=== PATIENT | female | born 1995 | race Caucasian/White ===

== ENCOUNTER 2018-04-26 17:46 | Outpatient (CLI) | payer MEDICAID ==
[~2018-04-26] VITALS: Ht 160 cm; Wt 91.8 kg
[~2018-04-26 17:46] MED LIST: PNV11TAB PO
[2018-04-26 17:55] VITALS: BP 117/76; PULSE 71; RESP 18; Ht 160 cm; Wt 91.8 kg
[2018-04-26] MEDS ORDERED: TERBUTALINE 1 MG/ML INJ SC ONE (21:00)
--- NOTE | 2018-04-26 22:18 | PN ---
Triage Information Date/Time April 26, 2018 Reason for visit: Uterine contractions Weeks of Gestation 32w 3d /Para 3/2 Diabetes: none Hypertention: none Additional information No VB or leaking.PMHx: none. PSHx: none. NKDA Objective Vital Signs Date Temp Pulse Resp B/P (MAP) Pulse Ox O2 O2 Flow FiO2 Time Delivery Rate 04/26/18 98.4 71 18 117/76 Room Air 17:55 (90) Heart Rate: 150's Heart Rate Comments Accels to 180 BPM. No decels. Contractions: < 5 Minutes Apart Results/Medications Results 24 hrs Laboratory Tests Test 04/26/18 17:00 Urine Color YELLOW Urine Clarity CLEAR Urine pH 7.0 Urine Specific [place] 1.013 Urine Ketones NEGATIVE Urine Nitrite NEGATIVE Urine Bilirubin NEGATIVE Urine Urobilinogen NEGATIVE Urine Leukocyte Esterase 2+ H Urine Microscopic RBC 1 Urine Microscopic WBC 7 H Urine Squamous Epithelial Cells FEW Urine Bacteria FEW A Urine Hemoglobin NEGATIVE Urine Glucose NEGATIVE Urine Total Protein NEGATIVE Imaging Results BPP 8/8 with an ERLIN of 8.9 cm. Cervical length 4.0 cm and closed. Disposition: Discharge Assessment/Plan A: IUP at 32w 3d. False labor. P: Pt was given p.o. hydration and then one dose of terbutaline and the contractions spaced out to one q 30 minutes which the pt does not feel at all. D/C home. PTL precautions given. Pelvic rest and pt to take it easy and hydrate well tomorrow. KEILA BLAS MD Apr 26, 2018 22:18
--- NOTE | 2018-04-26 22:39 | TRIAGE ---
OB Triage Datetime Report Generated by CPN: 04/26/2018 22:39 Datetime: 04/26/2018 22:10 Stage of : OB Triage Labor Evaluation Frequency: x3 Monitor Mode: External Quality: Mild Pattern: Normal: <= 5 Contractions in 10 Minutes Resting Tone [place]: Relaxed Heart Rate FHR Baseline Rate: 140 Monitor Mode: External US FHR Baseline Changes: No Baseline Change Variability: Moderate 6-25 bpm Accelerations: 15X15 Decelerations: None Category: Category I Pain Assessment Pain Scale: 0 Pain Presence: None/Denies Pain Type: N/A Datetime: 04/26/2018 21:33 Vaginal Exam Membrane Status: Intact Datetime: 04/26/2018 21:10 Stage of : OB Triage Monitor Mode: External Resting Tone [place]: Relaxed Heart Rate FHR Baseline Rate: 150 Monitor Mode: External US Pain Assessment Pain Scale: 0 Pain Presence: None/Denies Pain Type: N/A Datetime: 04/26/2018 20:45 Stage of : OB Triage Heart Rate FHR Baseline Rate: 150 Datetime: 04/26/2018 20:32 Stage of : OB Triage Monitor Mode: External Quality: Mild Pattern: Normal: <= 5 Contractions in 10 Minutes Resting Tone [place]: Relaxed Heart Rate FHR Baseline Rate: 145 Monitor Mode: External US FHR Baseline Changes: No Baseline Change Variability: Moderate 6-25 bpm Accelerations: 15X15 Decelerations: None Category: Category I Pain Assessment Pain Scale: 5 Pain Presence: Intermittent Pain Type: Cramping Pain Location: Abdomen Datetime: 04/26/2018 20:00 Stage of : OB Triage Datetime: 04/26/2018 19:39 Stage of : OB Triage Monitor Mode: External Quality: Mild Pattern: Normal: <= 5 Contractions in 10 Minutes Resting Tone [place]: Relaxed Heart Rate FHR Baseline Rate: 150 Monitor Mode: External US Pain Assessment Pain Scale: 5 Pain Presence: Intermittent Pain Type: Cramping Pain Location: Abdomen Datetime: 04/26/2018 19:20 Labor Evaluation Frequency: 2-5 Monitor Mode: External Duration (sec)2399: 30-40 Quality: Mild Pattern: Normal: <= 5 Contractions in 10 Minutes Resting Tone [place]: Relaxed Heart Rate FHR Baseline Rate: 145 Monitor Mode: External US FHR Baseline Changes: No Baseline Change Variability: Moderate 6-25 bpm Accelerations: 15X15 Decelerations: None Category: Category I Datetime: 04/26/2018 19:09 Labor Evaluation Frequency: X4 Monitor Mode: External Duration (sec)2399: 40-80 Quality: Mild Pattern: Normal: <= 5 Contractions in 10 Minutes Resting Tone [place]: Relaxed Heart Rate FHR Baseline Rate: 140 Monitor Mode: External US Variability: Moderate 6-25 bpm Accelerations: 15X15 Decelerations: None Category: Category I Datetime: 04/26/2018 18:09 Comments: U/S TECH AT BEDSIDE Datetime: 04/26/2018 18:08 Labor Evaluation Frequency: X1 Monitor Mode: External Duration (sec)2399: 50 Quality: Mild Pattern: Normal: <= 5 Contractions in 10 Minutes Resting Tone [place]: Relaxed Heart Rate FHR Baseline Rate: 150 Monitor Mode: External US Variability: Moderate 6-25 bpm Accelerations: 15X15 Decelerations: None Category: Category I Datetime: 04/26/2018 17:53 Assessment Type: Triage Maternal Assessment Level of Consciousness: Fully Conscious DTR's/Clonus: DTRs 2+; No Clonus Headache: Denies Blurred Vision: No Respiratory Effort: Unlabored; Regular Rhythm; Equal Expansion Breath Sounds, Left: Clear and Equal Breath Sounds, Right: Clear and Equal Nausea/Vomiting: Denies RUQ Epigastric Pain: Denies Lower Extremities Edema: None Degree: None Upper Extremities Edema: None Degree: None Facial Edema: None Fall Risk Assessment History of Falling: (0) No Secondary Diagnosis: (0) No Ambulatory Aid: (0) Bedrest/Nurse Assist IV Therapy: (0) No Gait: (0) Normal/Bedrest/Immobile Mental Status: (0) Oriented to Own Ability Fall Score: 0 Fall Risk Score Definition: No Risk: No action required Datetime: 04/26/2018 17:52 Time of Arrival: 04/26/2018 17:35 EGA: 32.3 Arrived By: Ambulatory Arrived From: Home Chief Complaint: LOWER ABD/VAGINAL PRESSURE Movement: Present Contractions: Denies/Absent Rupture of Membranes: Denies Vaginal Bleeding: None Vaginal Discharge: Denies Recent Sexual Intercouse: Denies Abdominal Trauma: Not Applicable Patient Complaints: Back Pain Time Provider Notified: 04/26/2018 18:06 Provider Notified: CAROL ANN Initial Plan: U/A, NST Datetime: 04/26/2018 17:51 Pain Assessment Pain Scale: 4 Pain Presence: Constant Pain Type: Pressure Pain Location: Abdomen; Back; Perineum Pain Goal: 4 Pain Relief Measures: Comfort Measures Pain Assessment Comments: C/O LOWER ABD/BACK AND VAGINAL PRESSURE SINCE YESTERDAY. STATES PAIN IS T OLERABLE. DENIES ANY VAGINAL LEAKING OR BLEEDING Datetime: 03/28/2018 17:00 Monitor Mode: MD STATED NOT NECESSARY,OFF AWAITING CVL ,WILL DISCHARGE PT Datetime: 03/28/2018 16:59 Labor Evaluation Frequency: 0 Monitor Mode: External Pattern: Normal: <= 5 Contractions in 10 Minutes Resting Tone [place]: Relaxed Heart Rate FHR Baseline Rate: 150 Monitor Mode: External US FHR Baseline Changes: No Baseline Change Variability: Moderate 6-25 bpm Accelerations: 10X10 Decelerations: None Category: Category I Datetime: 03/28/2018 16:30 Labor Evaluation Frequency: 0 Monitor Mode: External Resting Tone [place]: Relaxed Heart Rate FHR Baseline Rate: 150 Monitor Mode: External US FHR Baseline Changes: No Baseline Change Variability: Moderate 6-25 bpm Accelerations: 15X15 Decelerations: None Category: Category I Datetime: 03/28/2018 15:59 Stage of : OB Triage Maternal Assessment Level of Consciousness: Fully Conscious DTR's/Clonus: DTRs 2+; No Clonus Headache: Denies Blurred Vision: No Respiratory Effort: Unlabored; Regular Rhythm; Equal Expansion Breath Sounds, Left: Clear and Equal Breath Sounds, Right: Clear and Equal Nausea/Vomiting: Denies RUQ Epigastric Pain: Denies Lower Extremities Edema: None Degree: None Upper Extremities Edema: None Degree: None Facial Edema: None Temperature Route: Oral Fall Risk Assessment History of Falling: (0) No Secondary Diagnosis: (0) No Ambulatory Aid: (0) Bedrest/Nurse Assist IV Therapy: (0) No Gait: (0) Normal/Bedrest/Immobile Mental Status: (0) Oriented to Own Ability Fall Score: 0 Fall Risk Score Definition: No Risk: No action required Labor Evaluation Frequency: 0 Monitor Mode: External Heart Rate FHR Baseline Rate: 140 Monitor Mode: External US FHR Baseline Changes: No Baseline Change Variability: Moderate 6-25 bpm Accelerations: 10X10 Decelerations: None Category: Category I Datetime: 03/28/2018 15:55 Time of Arrival: 03/28/2018 14:30 EGA: 28.2 Arrived By: Ambulatory Chief Complaint: LOWER BACKPAINS AND LOWER ABDOMINAL PAIN,BURNING SENSTION WHEN VOIDING Time Provider Notified: 03/28/2018 16:01 (Annotations: Data stored by N on behalf of user) Provider Notified: CHRISTINE Initial Plan: ROSENDOV/S
== END 2018-04-26 22:23 | disposition home or self-care (01) ==
LOC: OBT 17:46 → L-D 17:46 → OBT 22:23
PROVIDERS: ATTEND Obstetrics & Gynecology
DX: O62.9 Abnormality of forces of labor, unspecified (principal); Z3A.32 32 weeks gestation of pregnancy
CPT/HCPCS: 76817; 76818; 81001; 87086; J3105; Z7500; G0463

== ENCOUNTER 2018-05-16 12:25 | Outpatient (CLI) | payer MEDICAID ==
[~2018-05-16] VITALS: Ht 165.1 cm; Wt 94.0 kg
[2018-05-16 12:59] VITALS: Ht 165.1 cm; Wt 94.0 kg
[2018-05-16 13:00] VITALS: BP 103/70
[2018-05-16] MEDS ORDERED: AL HYDROX/MG HYDROX/SIMETH 30 ML CUP PO ONE (13:30)
--- NOTE | 2018-05-16 16:34 | PN ---
Triage Information Date/Time 05/16/18 Reason for visit: Abd/pelvic pain Weeks of Gestation [id number] /Para Diabetes: none Hypertention: none Objective Vital Signs Date Temp Pulse Resp B/P (MAP) Pulse Ox O2 O2 Flow FiO2 Time Delivery Rate 05/16/18 98.3 103/70 13:00 (81) Heart Rate: 140's Contractions: None Results/Medications Results 24 hrs Laboratory Tests Test 05/16/18 13:38 Urine Color YELLOW Urine Clarity CLEAR Urine pH 7.0 Urine Specific [place] 1.005 Urine Ketones NEGATIVE Urine Nitrite NEGATIVE Urine Bilirubin NEGATIVE Urine Urobilinogen NEGATIVE Urine Leukocyte Esterase NEGATIVE Urine Hemoglobin NEGATIVE Urine Glucose NEGATIVE Urine Total Protein NEGATIVE Medications maalox Imaging Results BPP 8/8 ERLIN 8.7 no chlelithiasis fatty liver Disposition: Discharge Assessment/Plan A [id number] RUQ pain alleviated borderline oligohydramnios P discharge home f/u 3days for f/u for ERLIN RTH prn BEBETO MAHARAJ MD May 16, 2018 16:34
--- NOTE | 2018-05-16 16:35 | TRIAGE ---
OB Triage Datetime Report Generated by CPN: 05/16/2018 16:35 Datetime: 05/16/2018 14:57 Labor Evaluation Frequency: 0 Monitor Mode: External Pattern: Normal: <= 5 Contractions in 10 Minutes Resting Tone [place]: Relaxed Heart Rate FHR Baseline Rate: 145 Monitor Mode: External US Variability: Moderate 6-25 bpm Accelerations: 15X15 Decelerations: None Category: Category I Datetime: 05/16/2018 14:51 Comments: BACK PN MONITOR Datetime: 05/16/2018 13:57 Comments: us at bedside Datetime: 05/16/2018 13:48 Comments: us at bedside Datetime: 05/16/2018 13:29 Labor Evaluation Frequency: 0 Monitor Mode: External Pattern: Normal: <= 5 Contractions in 10 Minutes Resting Tone [place]: Relaxed Heart Rate FHR Baseline Rate: 145 Monitor Mode: External US Variability: Moderate 6-25 bpm Accelerations: 15X15 Decelerations: None Category: Category I Datetime: 05/16/2018 12:47 Stage of : OB Triage Assessment Type: Triage Time of Arrival: 05/16/2018 12:25 EGA: 35.2 Arrived By: Ambulatory Arrived From: Home Chief Complaint: ABD PAIN, UPPER RQ PAIN Movement: Present Rupture of Membranes: Denies Vaginal Bleeding: None Vaginal Discharge: Denies Recent Sexual Intercouse: Denies Abdominal Trauma: Not Applicable Patient Complaints: Other Time Provider Notified: 05/16/2018 13:16 Provider Notified: DR. KING Initial Plan: EFM CALL MD Maternal Assessment Level of Consciousness: Fully Conscious DTR's/Clonus: DTRs 2+; No Clonus Headache: Denies Blurred Vision: No Respiratory Effort: Unlabored; Regular Rhythm; Equal Expansion Breath Sounds, Left: Clear and Equal Breath Sounds, Right: Clear and Equal Nausea/Vomiting: Denies RUQ Epigastric Pain: Denies Lower Extremities Edema: None Degree: None Upper Extremities Edema: None Degree: None Facial Edema: None Temperature Route: Oral Fall Risk Assessment History of Falling: (0) No Secondary Diagnosis: (0) No Ambulatory Aid: (0) Bedrest/Nurse Assist IV Therapy: (0) No Gait: (0) Normal/Bedrest/Immobile Mental Status: (0) Oriented to Own Ability Fall Score: 0 Fall Risk Score Definition: No Risk: No action required Monitor Mode: External Monitor Mode: External US Pain Assessment Pain Scale: 8 Pain Presence: Constant Pain Type: Ache Pain Location: Abdomen Datetime: 04/26/2018 17:53 Fall Score: 0 Fall Risk Score Definition: No Risk: No action required Datetime: 04/26/2018 17:52 EGA: 32.3 Datetime: 03/28/2018 15:59 Fall Score: 0 Fall Risk Score Definition: No Risk: No action required Datetime: 03/28/2018 15:55 EGA: 28.2
== END 2018-05-16 16:35 | disposition home or self-care (01) ==
LOC: OBT 12:25 → L-D 12:25 → OBT 16:35
PROVIDERS: ATTEND Obstetrics & Gynecology
DX: O26.893 Other specified pregnancy related conditions, third trimester (principal); Z3A.35 35 weeks gestation of pregnancy; R10.2 Pelvic and perineal pain
CPT/HCPCS: 76705; 76818; 81003; Z7610; G0463

== ENCOUNTER 2018-05-19 14:19 | Outpatient (CLI) | payer MEDICAID ==
[~2018-05-19] VITALS: Ht 165.1 cm; Wt 94.5 kg
[2018-05-19 14:57] VITALS: BP 111/67; PULSE 67; RESP 19
[2018-05-19 14:58] VITALS: Ht 165.1 cm; Wt 94.5 kg
--- NOTE | 2018-05-19 16:01 | PN ---
Triage Information Date/Time Reason for visit: Reepat ERLIN (HX of low ERLIN) Weeks of Gestation 35+ /Para 3/2 Diabetes: none Hypertention: none Objective Vital Signs Date Temp Pulse Resp B/P (MAP) Pulse Ox O2 O2 Flow FiO2 Time Delivery Rate 05/19/18 98.1 67 19 111/67 Room Air 14:57 (82) Heart Rate: 140's Contractions: None Disposition: Discharge Assessment/Plan BPP 11/27 ERLIN 11 Precautions discussed Questions answered Follow up with provider NIXON LAI M.D. May 19, 2018 16:01
== END 2018-05-19 16:08 | disposition home or self-care (01) ==
LOC: L-D 14:19 → OBT 14:19
PROVIDERS: ATTEND Obstetrics & Gynecology
DX: O41.8X30 Other specified disorders of amniotic fluid and membranes, third trimester, not applicable or unspecified (principal); Z3A.35 35 weeks gestation of pregnancy
CPT/HCPCS: 76818; Z7500; G0463

== ENCOUNTER 2018-05-27 11:02 | Inpatient (IN) | payer MEDICAID ==
[~2018-05-27] VITALS: Ht 165.1 cm; Wt 95.0 kg
[2018-05-27 11:21] VITALS: Ht 165.1 cm; Wt 95.0 kg
[2018-05-27 11:22] VITALS: BP 115/75
--- NOTE | 2018-05-27 11:52 | TRIAGE ---
OB Triage Datetime Report Generated by CPN: 05/27/2018 11:52 Datetime: 05/27/2018 11:45 Vaginal Exam Dilatation (cms): 1.0 Effacement (%): 70 Station: -3 Exam By: S. RICKY Datetime: 05/27/2018 11:14 Stage of : OB Triage Assessment Type: Triage Maternal Assessment Level of Consciousness: Fully Conscious DTR's/Clonus: DTRs 2+; No Clonus Headache: Denies Blurred Vision: No Respiratory Effort: Unlabored; Regular Rhythm; Equal Expansion Breath Sounds, Left: Clear and Equal Breath Sounds, Right: Clear and Equal Nausea/Vomiting: Denies RUQ Epigastric Pain: Denies Upper Extremities Edema: None Degree: None Facial Edema: None Temperature Route: Oral Fall Risk Assessment History of Falling: (0) No Secondary Diagnosis: (0) No Ambulatory Aid: (0) Bedrest/Nurse Assist IV Therapy: (0) No Gait: (0) Normal/Bedrest/Immobile Mental Status: (0) Oriented to Own Ability Fall Score: 0 Fall Risk Score Definition: No Risk: No action required Monitor Mode: External Monitor Mode: External US Datetime: 05/27/2018 11:13 Time of Arrival: 05/27/2018 10:55 EGA: 36.6 Arrived By: Wheelchair Arrived From: Office Chief Complaint: UC;S R/O LABOR Movement: Present Contractions: Irregular Rupture of Membranes: Denies Vaginal Bleeding: None Vaginal Discharge: Denies Recent Sexual Intercouse: Denies Abdominal Trauma: Not Applicable Patient Complaints: Contractions Time Provider Notified: 05/27/2018 03:00 Initial Plan: EFMX2, CALLL Datetime: 05/19/2018 15:51 Comments: ORDERS TO D/C PATIENT HOME - CALLED DR. LAI Datetime: 05/19/2018 15:14 Comments: US AT BEDSIDE Datetime: 05/19/2018 15:03 Stage of : OB Triage Labor Evaluation Frequency: 0 Monitor Mode: External Pattern: Normal: <= 5 Contractions in 10 Minutes Heart Rate FHR Baseline Rate: 135 Monitor Mode: External US Variability: Moderate 6-25 bpm Accelerations: 15X15 Decelerations: None Category: Category I Datetime: 05/19/2018 14:51 Time of Arrival: 05/19/2018 14:51 EGA: 35.5 Arrived By: Ambulatory Arrived From: Home Chief Complaint: f/u from [facility], pt stated that MD told her to come for a f/u at the hospital Movement: Present Contractions: Denies/Absent Rupture of Membranes: Denies Vaginal Bleeding: None Recent Sexual Intercouse: Denies Abdominal Trauma: Not Applicable Patient Complaints: Other Time Provider Notified: 05/19/2018 15:51 Provider Notified: DR. KING Initial Plan: monitors applied. notified Datetime: 05/16/2018 12:47 EGA: 35.2 Fall Score: 0 Fall Risk Score Definition: No Risk: No action required Datetime: 04/26/2018 17:53 Fall Score: 0 Fall Risk Score Definition: No Risk: No action required Datetime: 04/26/2018 17:52 EGA: 32.3 Datetime: 03/28/2018 15:59 Fall Score: 0 Fall Risk Score Definition: No Risk: No action required Datetime: 03/28/2018 15:55 EGA: 28.2
[2018-05-27] MEDS: LACTATED RINGER'S 1,000 ML IV SCH ×2 (12:36→15:34)
--- NOTE | 2018-05-27 14:05 | HP ---
Date/Time of Note Date/Time of Note DATE: 05/27/18 TIME: 14:04 OB - History Hx of Present Free Text/Dictation @36+wks in early labor : 2 Para: 1 Care: Good Care Ultrasounds: Normal mid trimester US Obstetrical Complications: None Medical Complications: None Past Family/Social History * Past Medical, Surgical, Family and Obstetric Histories reviewed from chart. OB Admission Exam Vital Signs Vital Signs Vital Signs Date Temp Pulse Resp B/P (MAP) Pulse Ox O2 O2 Flow FiO2 Time Delivery Rate 05/27/18 98.2 115/75 Room Air 11:22 (88) Physical Exam Abdomen: WNL Cervical Dilatation: Fingertip Effacement: 0% Station: Ballotable Membranes: Intact Heart Rate: 140's Accelerations: Accelerations Present Decelerations: No Decelerations Varibility: Moderate Contractions on Admission: 6-10 Minutes Apart OB Assessment/Plan Reason for admission: observation Other Assessment: PMH Denies PSH Denies Plan: Expectant Management NIXON LAI M.D. May 27, 2018 14:05
[2018-05-27] MEDS ORDERED: METHYLERGONOVINE 0.2 MG INJ IM PRN (16:00)
[2018-05-27] MEDS ORDERED: CARBOPROST 250 MCG INJ IM PRN (16:00)
[2018-05-27] MEDS ORDERED: BUTORPHANOL 2 MG INJ IV PRN (16:00)
[2018-05-27] MEDS ORDERED: OXYTOCIN 30 UNITS/LR 500 ML IV PRN (16:00)
[2018-05-27] MEDS ORDERED: LIDOCAINE 1% (MPF) 30 ML INJ INJ PRN (16:00)
[2018-05-27] MEDS ORDERED: MISOPROSTOL 200 MCG TAB PR PRN (16:00)
[2018-05-27] MEDS ORDERED: OXYTOCIN 30 UNITS/LR 500 ML IV SCH ×2 (16:00)
[2018-05-28] MEDS: LACTATED RINGER'S 1,000 ML IV SCH ×3 (08:09→16:50)
[2018-05-28] MEDS: PRENATAL VITAMIN PO SCH (09:00)
[2018-05-28] MEDS: FERROUS SULFATE (EC) 325 MG TAB PO SCH (09:00)
[2018-05-28] MEDS ORDERED: OXYTOCIN 30 UNITS/LR 500 ML IV SCH ×2 (15:00→20:21)
[2018-05-28 20:05] VITALS: BP 123/79; PULSE 62; RESP 18
[2018-05-28] MEDS: IBUPROFEN 600 MG TAB PO PRN (20:19)
[2018-05-28] MEDS ORDERED: LACTATED RINGER'S 1,000 ML IV* SCH (20:21)
[2018-05-28] MEDS ORDERED: BENZOCAINE 20% 56 ML SPRAY TOP PRN (20:30)
[2018-05-28] MEDS ORDERED: MISOPROSTOL 200 MCG TAB PR PRN (20:30)
[2018-05-28] MEDS ORDERED: HYDROCODONE/APAP (5/325) TAB PO PRN (20:30)
[2018-05-28] MEDS ORDERED: CARBOPROST 250 MCG INJ IM PRN (20:30)
[2018-05-28] MEDS ORDERED: SENNA/DOCUSATE NA (8.6MG/50MG) TAB PO PRN (20:30)
[2018-05-28] MEDS ORDERED: WITCH HAZEL/GLYCERIN PAD PR PRN (20:30)
[2018-05-28] MEDS ORDERED: DIPHENHYDRAMINE 25 MG CAP PO PRN (20:30)
[2018-05-28] MEDS ORDERED: ACETAMINOPHEN 325 MG TAB PO PRN (20:30)
[2018-05-28] MEDS ORDERED: LANOLIN HPA 1 PKT TOP PRN (20:30)
[2018-05-28] MEDS ORDERED: ZOLPIDEM 5 MG TAB PO PRN (20:30)
[2018-05-28] MEDS ORDERED: METHYLERGONOVINE 0.2 MG INJ IM PRN (20:30)
[2018-05-28] MEDS ORDERED: MAGNESIUM HYDROXIDE 30ML CUP PO PRN (20:30)
[2018-05-28] MEDS ORDERED: OXYTOCIN 30 UNITS/LR 500 ML IV PRN (20:30)
[2018-05-28 22:10] VITALS: BP 144/71; PULSE 74; RESP 18
[2018-05-29 00:30] VITALS: BP 105/68; PULSE 75; RESP 18
[2018-05-29 04:20] VITALS: BP 103/56; PULSE 68; RESP 18
[2018-05-29] MEDS: IBUPROFEN 800 MG TAB PO SCH ×4 (05:34→17:47)
[2018-05-29 08:20] VITALS: BP 106/66; PULSE 63; RESP 18
[2018-05-29] MEDS: FERROUS SULFATE (EC) 325 MG TAB PO SCH (10:54)
[2018-05-29] MEDS: PRENATAL VITAMIN PO SCH (10:54)
--- NOTE | 2018-05-29 15:33 | QN ---
Documentation Comment day #1 Status post Patient stable and afebrile Vital signs stable VS - Last 72 Hours, by Label Date Temp Pulse Resp B/P (MAP) Pulse Ox O2 O2 Flow FiO2 Time Delivery Rate 05/29/18 98.9 63 18 106/66 Room Air 08:20 (79) 05/29/18 98.4 68 18 103/56 Room Air 04:20 (72) 05/29/18 98.5 75 18 105/68 Room Air 00:30 (80) 05/28/18 98.7 62 18 123/79 Room Air 20:05 (94) 05/27/18 98.2 115/75 Room Air 11:22 (88) Hematology - 72 Hrs Test 05/27/18 15:08 05/29/18 08:09 Hematocrit 34.6 % (37.0-47.0) L 36.5 % (37.0-47.0) L Hemoglobin 11.3 g/dl (12.0-16.0) L 11.6 g/dl (12.0-16.0) L Mean Corpuscular 26.3 pg (29.0-33.0) L 26.4 pg (29.0-33.0) L Hemoglobin Mean Corpuscular 32.7 g/dl (32.0-37.0) 31.8 g/dl (32.0-37.0) L Hemoglobin Concent Mean Corpuscular Volume 80.7 fl (82.0-101.0) L 83.0 fl (82.0-101.0) Mean Platelet Volume 10.2 fl (7.4-10.4) 10.6 fl (7.4-10.4) H Platelet Count 221 10^3/UL (140-415) 232 10^3/UL (140-415) Red Blood Count 4.29 10^6/ul (4.20-5.40) 4.40 10^6/ul (4.20-5.40) Red Cell Distribution 14.0 % (11.5-14.5) 14.3 % (11.5-14.5) Width White Blood Count 10.2 10^3/ul (4.8-10.8) 8.0 10^3/ul (4.8-10.8) # Chemistry Test 05/27/18 15:08 Sodium Level 138 mmol/L (135-144) Potassium Level 3.8 mmol/L (3.5-5.1) Chloride Level 109 mmol/L (97-110) Carbon Dioxide Level 21 mmol/L (21-31) Anion Gap 8 (5-13) Blood Urea Nitrogen 7 mg/dl (7-20) Creatinine 0.41 mg/dl (0.44-1.00) L Est Glomerular Filtrat Rate mL/min > 60 mL/min (>60) Glucose Level 73 mg/dl (70-220) Calcium Level 9.4 mg/dl (8.4-10.2) Total Bilirubin 0.3 mg/dl (0.2-1.3) Direct Bilirubin 0.00 mg/dl (0.00-0.20) Indirect Bilirubin 0.3 mg/dl (0-1.1) Aspartate Amino Transf (AST/SGOT) 33 IU/L (15-46) Alanine Aminotransferase (ALT/SGPT) 20 IU/L (13-69) Alkaline Phosphatase 186 IU/L (42-121) H Total Protein 6.6 g/dl (6.1-8.1) Albumin 3.3 g/dl (3.3-4.9) Globulin 3.30 g/dl (1.3-3.2) H Albumin/Globulin Ratio 1.00 Abdomen soft, fundus firm Perineum intact Extremities nontender Assessment and plan Patient stable and doing well Continue with routine care TIKI BILLINGS MD May 29, 2018 15:33
[2018-05-29 15:45] VITALS: BP 98/58; PULSE 64; RESP 18
[2018-05-29 19:30] VITALS: BP 111/67; PULSE 77; RESP 18
[2018-05-29] MEDS: IBUPROFEN 600 MG TAB PO PRN (23:30)
[2018-05-30 04:00] VITALS: BP 112/69; PULSE 74; RESP 18
[2018-05-30] MEDS: IBUPROFEN 800 MG TAB PO SCH ×3 (05:33→12:04)
[2018-05-30 08:10] VITALS: BP 113/64; PULSE 60; RESP 20
[2018-05-30] MEDS ORDERED: VARICELLA VACCINE LIVE/PF 1,350 UNIT/0.5 ML ML SC* ONE (09:00)
[2018-05-30] MEDS ORDERED: DIPHTH/TET/ACEL PERTUSS (ADULT) 0.5 ML VIAL IM* ONE (09:00)
[2018-05-30] MEDS ORDERED: MEASLES,MUMPS,RUBELLA VACCINE INJ SC* ONE (09:00)
--- NOTE | 2018-05-30 09:00 | LDN ---
Date/Time of Note Date/Time of Note DATE: 05/30/18 TIME: 08:59 Delivery Summary NSD W/O COMPLICATIONS Placenta Delivered: Spontaneously Meconium: none Episiotomy: No Anesthesia type: Epidural Estimated blood loss: 300 Sponge & Needle done & correct: Yes All needle counts correct: Yes Any foreign bodies felt in the: No CLAU KING MD May 30, 2018 09:00
--- NOTE | 2018-05-30 09:01 | DS ---
Date/Time of Note Date/Time of Note DATE: 05/30/18 TIME: 09:00 Discharge Summary Admission/Discharge Info Admit Date/Time May 27, 2018 at 11:50 Discharge Date/Time Discharge Diagnosis TERM Patient Condition: Stable Hospital Course UNREMARKABLE Home Meds Reported Medications [id number] ( 19) 1 Each Tablet, 1 TAB PO DAILY, TAB 03/28/18 Primary Care Provider Care Physician No Primary CLAU KING MD May 30, 2018 09:01
[2018-05-30] MEDS: FERROUS SULFATE (EC) 325 MG TAB PO SCH (09:53)
[2018-05-30] MEDS: PRENATAL VITAMIN PO SCH (09:53)
--- NOTE | 2018-05-30 10:36 | PD.PPDC ---
AUTOMOTIVE SPECIALTY TECHNICIAN Discharge Instruction Diagnosis [id number] Final Diagnosis: [id number] S/P Condition [id number] Patient Condition: Orwge9l Stable Diet [id number] Diet: Ezyza2q Resume Regular Diet Activity/Restrictions Bsozo4Dp Activity: Woesa9e May Shower [id number] Restrictions: Ihipg1i No Lifting No Sexual Activity Nothing in the Vagina No Rheems No Tampons, douche Follow-up Follow-up with Physician: 2, Week/Weeks Return to clinic for [id number] RAILWAYS ASSISTANT Instructions: [id number] Fever greater than 101 Chills Worsening abdominal pain Excessive Vaginal Bleeding More than 2 pads per hour Unable to tolerate diet [id number] OB Instructions: Hdbqv7r Breast Tenderness Depression Blurried Vision Headache BEBETO MAHARAJ MD May 30, 2018 10:36
--- NOTE | 2018-05-31 15:31 | DELSUM ---
Delivery Summary A-C Datetime Report Generated by CPN: 05/31/2018 15:31 DELIVERY PERSONNEL Work Order Sorting Clerk: Aguayo, Kandi MATERNAL INFORMATION Delivery Anesthesia: None Medications in Delivery: pitocin Delivery QBL (ml): 300 Placenta Cultured: No Maternal Complications: None LABOR SUMMARY EDC: 06/18/2018 00:00 No. Babies in Womb: 1 Attempted: No Labor Anesthesia: None LABOR INFORMATION Reason for Induction: Not Applicable Onset of Labor: 05/27/2018 03:00 Oxytocin: Augmentation Group B Beta Strep: Negative Antibiotics # of Doses: 0 Steroids Given: None Reason Steroids Not Administered: Not Applicable MEMBRANES Membranes Rupture Method: Artificial Rupture of Membranes: 05/28/2018 14:35 Length of Rupture (hr): 3.28 Amniotic Fluid Color: Clear Amniotic Fluid Amount: Moderate Amniotic Fluid Odor: Normal STAGES OF LABOR Stage 3 hr: 0 Stage 3 min: 7 Total Time in Labor hr: 38 Total Time in Labor min: 59 VAGINAL DELIVERY Episiotomy: None Laceration Extension: N/A Laceration Type: None Initial Vag Sponge Count: 10 Final Vag Sponge Count: 10 Initial Vag Sharps Count: 1 Final Vag Sharps Count: 1 Sponge Count Correct: Yes Sharps Count Correct: Yes BABY A INFORMATION Delivery Date/Time: 05/28/2018 17:52 Method of Delivery: Vaginal Born in Route : No : N/A Forceps: N/A Vacuum Extraction: N/A Shoulder Dystocia : No SHOULDER DYSTOCIA BABY A Infant Delivery Date/Time: 05/28/2018 17:52 PRESENTATION/POSITION BABY A Presentation: Cephalic Cephalic Presentation: Vertex Vertex Position: Left Occipital Anterior Breech Presentation: N/A PLACENTA INFORMATION BABY A Placenta Delivery Time : 05/28/2018 17:59 Placenta Method of Delivery: Spontaneous Placenta Status: Delivered SCORES BABY A Heart Rate 1 min: >100 bpm Resp Effort 1 min: Good Cry Reflex Irritability 1 min: Cough/Sneeze/Pulls Away Muscle Tone 1 min: Active Motion Color 1 min: Blue/Pale Resuscitation Effort 1 min: Tactile Stimulation SCORE 1 MIN: 8 Heart Rate 5 min: >100 bpm Resp Effort 5 min: Good Cry Reflex Irritability 5 min: Cough/Sneeze/Pulls Away Muscle Tone 5 min: Active Motion Color 5 min: Body [place], Extremit Blue Resuscitation Effort 5 min: Tactile Stimulation SCORE 5 MIN: 9 INFANT INFORMATION BABY A Gestational Age at Delivery: 37.0 Gestational Status: Early Term- 37- 38.6 Weeks Infant Outcome : Liveborn Infant Condition : Stable Sex: Female IDENTIFICATION/MEDS BABY A ID Band Number: [id number] ID Band Location: Right Leg; Left Arm Sensor Applied: Yes Sensor Number: [id number] Sensor Location : Cord Clamp Vitamin K Given : Not Given Erythromycin Given: Not Given WEIGHT/LENGTH BABY A Infant Birthweight (gm): 3300 Weight (lb): 7 Infant Weight (oz): 4 Infant Length (in): 20.00 Infant Length (cm): 50.80 CORD INFORMATION BABY A No. Cord Vessels: 3 Nuchal Cord : N/A Cord Blood Taken: Yes Infant Suction: Mouth; Nose ASSESSMENT BABY A Infant Complications: None Physical Findings at Delivery: Within Normal Limits Respirations: Appears Normal Sql Developer Dba/ALS Called : No Infant Care By: KANDI MACKAY Transferred To: Remains with Mother
== END 2018-05-30 15:31 | disposition home or self-care (01) | DRG 807 ==
LOC: OBT 11:02 → L-D 11:03 → OBT 11:50 → L-D 15:44 → PP1 05-28 20:13
PROVIDERS: ADMIT Obstetrics & Gynecology; ATTEND Obstetrics & Gynecology
PROC: 10E0XZZ Delivery of Products of Conception, External Approach (ICD-10-PCS; principal; 2018-05-27)
DX: O80 Encounter for full-term uncomplicated delivery (principal); Z37.0 Single live birth; Z3A.37 37 weeks gestation of pregnancy
CPT/HCPCS: 76818; 80053; 85025; 85610; 85730; 86592; 86850; 86900; 86901; 87340; 90715; 90716; G0463; J2590; J7120